=== PATIENT | male | born 1980 | race African-American/Black ===

== ENCOUNTER 2017-01-14 16:11 | Inpatient (IN) | payer OTHER ==
[2017-01-14] VITALS (7 sets, daily range): BP systolic 141–152; BP diastolic 73–95; PULSE 65–82; RESP 18; TEMP 98.4; O2SAT 95–100
[~2017-01-14] VITALS: Ht 182.9 cm; Wt 113.6 kg
[2017-01-14] MEDS ORDERED: SODIUM CHLORIDE 0.9% FLUSH 5 ML FLUSH IVF PRN (17:00)
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
[2017-01-14] MEDS ORDERED: MORPHINE SULFATE 4 MG/ML INJ IV PUSH ONE ×2 (17:30→20:45)
[2017-01-14 17:37] LABS: AUTOMATED NEUTROPHIL # 4.9 TH/MM3 (1.8-7.7); BASOPHIL % 0.2 % (0.0-2.0); EOSINOPHIL # 0.1 TH/MM3 (0-0.4); EOSINOPHIL % 1.5 % (0.0-4.0); HEMATOCRIT 43.1 % (39.0-51.0); HEMO FLAGS DIFF FINAL; LYMPH % 22.4 % (9.0-44.0); LYMPHOCYTE # 1.6 TH/MM3 (1.0-4.8); MEAN CELL VOLUME 81.5 FL (80.0-100.0); MEAN CORPUSCULAR HEMOGLOBIN 27.7 PG (27.0-34.0); MONO % 7.6 % (0.0-8.0); NEUT % 68.3 % (16.0-70.0); PLATELET COUNT 176 TH/MM3 (150-450); RED BLOOD COUNT 5.28 MIL/MM3 (4.50-5.90); RED CELL DISTRIBUTION WIDTH 13.9 % (11.6-17.2); WHITE BLOOD COUNT 7.2 TH/MM3 (4.0-11.0)
[2017-01-14 17:46] LABS: APTT (PATIENT) 28.4 SEC (24.3-30.1); PROTHROMBIN TIME - PATIENT 11.3 SEC (9.8-11.6)
[2017-01-14 17:59] LABS: BICARBONATE 27.4 MEQ/L (21.0-32.0); POTASSIUM 3.5 MEQ/L (3.5-5.1)
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
[2017-01-14] MEDS ORDERED: PROPOFOL 200 MG/20 ML AMP IV ONE (19:15)
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
--- NOTE | 2017-01-14 20:21 | RADRPT ---
EXAM DATE/TIME: 01/14/2017 19:49 [facility] COMPARISON: ANKLE RIGHT COMPLETE ([id number]), January 14, 2017, 18:42. INDICATIONS : Right Ankle Post-Reduction. MEDICAL HISTORY : None. SURGICAL HISTORY : None. ENCOUNTER: Initial ACUITY: 1 day PAIN SCORE: 8/10 LOCATION: Right Ankle. FINDINGS: Limited AP and lateral views of the right ankle were obtained and demonstrate postreduction changes. The fracture dislocation has been partially reduced with residual widening of the medial ankle mortis e approximately 1 cm. The tibia and talus are congruent. The fracture of the distal fibula has been r educed to near-anatomic alignment. There is no residual angulation. There is overlying soft tissue sw elling. CONCLUSION: Is reduction study is noted. Dominic Pierre MD on January 14, 2017 at 20:17 Board Certified Radiologist. This report was verified electronically.
[2017-01-14] MEDS ORDERED: ONDANSETRON HCL 4 MG/2 ML VIAL IV PUSH ONE (20:45)
[2017-01-14] MEDS ORDERED: TETANUS/DIPHTHERIA TOXOID ADULT 0.5 ML VIAL IM ONE (21:00)
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
[2017-01-14] MEDS ORDERED: SODIUM CHLORIDE 0.9% FLUSH 5 ML FLUSH FLUSH PRN (23:00)
[2017-01-14] MEDS ORDERED: ACETAMINOPHEN/HYDROcodone 325 MG/5 MG TAB PO PRN (23:00)
[2017-01-14] MEDS ORDERED: ACETAMINOPHEN 325 MG TAB PO PRN (23:00)
[2017-01-14] MEDS ORDERED: BISACODYL 10 MG SUPP PR PRN (23:00)
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
[2017-01-14] MEDS: SODIUM CHLOR 0.9% 1000 ML INJ 1,000 ML IV SCH (23:34)
[2017-01-14] MEDS: MORPHINE SULFATE 4 MG/ML INJ IV PRN (23:37)
[2017-01-15] VITALS (7 sets, daily range): BP systolic 102–153; BP diastolic 47–92; PULSE 58–76; RESP 16–22; TEMP 95.8–99.2; O2SAT 95–99
[2017-01-15] MEDS ORDERED: SODIUM CHLORID 0.9% 500 ML IV SCH (02:30)
[2017-01-15] MEDS ORDERED: METOPROLOL TARTRATE 25 MG TAB PO PRN (02:30)
[2017-01-15] MEDS ORDERED: LACTATED RINGER'S 1000 ML IV SCH (02:30)
[2017-01-15] MEDS ORDERED: INSULIN HUMAN REGULAR 1,000 UNITS/10 ML VIAL SQ PRN (02:30)
[2017-01-15] MEDS: ONDANSETRON HCL 4 MG/2 ML VIAL IVP PRN ×2 (02:41→09:18)
[2017-01-15] MEDS: MORPHINE SULFATE 4 MG/ML INJ IV PRN ×3 (02:42→09:17)
[2017-01-15 06:45] LABS: AUTOMATED NEUTROPHIL # 4.1 TH/MM3 (1.8-7.7); BASOPHIL % 0.2 % (0.0-2.0); EOSINOPHIL # 0.1 TH/MM3 (0-0.4); EOSINOPHIL % 1.5 % (0.0-4.0); HEMATOCRIT 40.4 % (39.0-51.0); HEMO FLAGS DIFF FINAL; LYMPHOCYTE # 1.9 TH/MM3 (1.0-4.8); MEAN CELL VOLUME 81.1 FL (80.0-100.0); MEAN CORPUSCULAR HEMOGLOBIN 27.6 PG (27.0-34.0); MONO % 11.1 % (0.0-8.0); NEUT % 60.2 % (16.0-70.0); PLATELET COUNT 161 TH/MM3 (150-450); RED BLOOD COUNT 4.98 MIL/MM3 (4.50-5.90); RED CELL DISTRIBUTION WIDTH 13.9 % (11.6-17.2); WHITE BLOOD COUNT 6.9 TH/MM3 (4.0-11.0)
[2017-01-15 07:03] LABS: ALT (GPT) 22 U/L (12-78); ANION GAP 8 MEQ/L (5-15); AST (GOT) 17 U/L (15-37); BICARBONATE 27.2 MEQ/L (21.0-32.0); BLOOD UREA NITROGEN 10 MG/DL (7-18); CHLORIDE 106 MEQ/L (98-107); GLOMERULAR FILTRATION RATE 92 ML/MIN (>89); POTASSIUM 3.7 MEQ/L (3.5-5.1); SODIUM (NA) 141 MEQ/L (136-145)
[2017-01-15 07:05] LABS: ALKALINE PHOSPHATASE 51 U/L (45-117); TOTAL BILIRUBIN ADULT 0.7 MG/DL (0.2-1.0)
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
[2017-01-15] MEDS: SODIUM CHLORIDE 0.9% FLUSH 5 ML FLUSH FLUSH SCH ×2 (09:00→20:52)
[2017-01-15] MEDS ORDERED: PROPOFOL 200 MG/20 ML AMP IV ONE (12:00)
[2017-01-15] MEDS ORDERED: NEOSTIGMINE 3 MG/3 ML SYR IV ONE (12:00)
[2017-01-15] MEDS ORDERED: NALOXONE HCL 0.4 MG/ML AMP IV ONE (12:00)
[2017-01-15] MEDS ORDERED: LACTATED RINGER'S 1000 ML INJ 1,000 ML IV ONE (12:00)
[2017-01-15] MEDS ORDERED: ONDANSETRON HCL 4 MG/2 ML VIAL IV PUSH ONE (12:00)
[2017-01-15] MEDS ORDERED: GENTAMICIN SULFATE 80 MG/2 ML VIAL ONE (12:48)
[2017-01-15] MEDS ORDERED: ceFAZolin INJ 1,000 MG VIAL ONE (12:48)
[2017-01-15] MEDS ORDERED: VANCOMYCIN HCL 1000 MG VIAL ONE (13:24)
--- NOTE | 2017-01-15 14:29 | PD.OP ---
Operative Report Preoperative Diagnosis: (1) Fracture of ankle, bimalleolar, right, closed (2) Syndesmotic disruption of right ankle Postoperative Diagnosis: (1) Fracture of ankle, bimalleolar, right, closed (2) Syndesmotic disruption of right ankle Procedure: 1) Right Ankle ORIF Bimalleolar Fracture 2) Right Ankle Repair Syndesmosis Anesthesia: General Surgeon: Golden Boothe MD Leather Lacer(s): Omra MESSINA Operation and Findings: see dictation Golden Boothe MD Jan 15, 2017 14:29
[2017-01-15] MEDS ORDERED: HYDROmorphone HCL PCA 6 MG/30 ML IV SCH (14:30)
[2017-01-15] MEDS ORDERED: diphenhydrAMINE HCL 25 MG CAP PO PRN (14:30)
[2017-01-15] MEDS ORDERED: MISCELLANEOUS PHARMACY INFORMATION XX ONE (14:30)
[2017-01-15] MEDS ORDERED: oxyCODONE/ACETAMINOPHEN 5 MG/325 MG TAB PO PRN (14:30)
[2017-01-15] MEDS ORDERED: NALOXONE HCL 0.4 MG/ML AMP IV PRN (14:30)
[2017-01-15] MEDS ORDERED: SODIUM CHLORIDE 0.9% FLUSH 5 ML FLUSH IVF PRN (14:30)
[2017-01-15] MEDS ORDERED: Post-op Orders (for Pharmacy) MISC XX ONE (14:30)
[2017-01-15] MEDS ORDERED: MISCELLANEOUS NURSING INFORMATION XX PRN (14:30)
[2017-01-15] MEDS: DEXT 5%-NACL 0.45% 1000 ML INJ 1,000 ML IV SCH (14:50)
[2017-01-15] MEDS ORDERED: *MEPERIDINE 25 MG INJ VIAL PERIprocedural Use ONLY ONE (14:50)
[2017-01-15] MEDS ORDERED: MIDAZOLAM HCL 2 MG/2 ML VIAL ONE (14:58)
[2017-01-15] MEDS ORDERED: fentaNYL CITRATE 250 MCG/5 ML AMP ONE (14:59)
[2017-01-15] MEDS ORDERED: MORPHINE SULFATE 4 MG/ML INJ ONE (14:59)
[2017-01-15] MEDS ORDERED: DO NOT ADM ANY ANTICOAGULANT DRUGS XX PRN (15:30)
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
--- NOTE | 2017-01-15 19:53 | RADRPT ---
EXAM DATE/TIME: 01/15/2017 14:09 [facility] COMPARISON: ANKLE RIGHT COMPLETE ([id number]), January 14, 2017, 18:42. INDICATIONS : Open reduction in operating room. MEDICAL HISTORY : None. SURGICAL HISTORY : None. ENCOUNTER: Subsequent ACUITY: 2 days PAIN SCORE: Non-responsive. LOCATION: Right lateral CONCLUSION: Fluoroscopic images demonstrate plate segment of plate and screws along the fibula. Syndesmotic screw along the ankle joint. Ryan Sorensen MD on January 15, 2017 at 19:51 Board Certified Radiologist. This report was verified electronically.
[2017-01-15] MEDS: ceFAZolin 2 GM PREMIX 50 ML IV SCH (20:52)
[2017-01-15] MEDS: SODIUM CHLORIDE 0.9% FLUSH 5 ML FLUSH IVF SCH (20:52)
[2017-01-15] MEDS: PCA - TOTAL MG DILAUDID DELIVERED PER SHIFT OTHER SCH (22:00)
[2017-01-16 01:15] VITALS: BP 141/66; PULSE 84; RESP 22; TEMP 100.3; O2SAT 96
[2017-01-16] MEDS: DEXT 5%-NACL 0.45% 1000 ML INJ 1,000 ML IV SCH ×2 (02:02→09:11)
[2017-01-16] MEDS: SODIUM CHLOR 0.9% 1000 ML INJ 1,000 ML IV SCH ×2 (04:55→14:55)
[2017-01-16 04:56] LABS: HEMATOCRIT 37.3 % (39.0-51.0)
[2017-01-16] MEDS: ceFAZolin 2 GM PREMIX 50 ML IV SCH ×2 (05:05→13:05)
[2017-01-16 05:08] VITALS: BP 151/92; PULSE 87; RESP 22; TEMP 99.7; O2SAT 95
[2017-01-16 05:25] LABS: BICARBONATE 29.5 MEQ/L (21.0-32.0); POTASSIUM 3.5 MEQ/L (3.5-5.1)
[2017-01-16] MEDS: PCA - TOTAL MG DILAUDID DELIVERED PER SHIFT OTHER SCH ×2 (06:00→14:00)
[2017-01-16 08:00] VITALS: BP 133/83; PULSE 83; RESP 18; TEMP 99.2; O2SAT 98
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
[2017-01-16] MEDS: SODIUM CHLORIDE 0.9% FLUSH 5 ML FLUSH FLUSH SCH (08:54)
[2017-01-16] MEDS: SODIUM CHLORIDE 0.9% FLUSH 5 ML FLUSH IVF SCH (08:54)
[2017-01-16] MEDS: oxyCODONE/ACETAMINOPHEN 5 MG/325 MG TAB PO PRN ×2 (09:19→15:36)
--- NOTE | 2017-01-16 10:21 | PD.ORT.PN ---
Subjective Subjective Remarks Patient comfortable. Pain controlled. Objective Vitals Vital Signs Date Time Temp Pulse Resp B/P Pulse Ox O2 Delivery O2 Flow Rate FiO2 01/16/17 08:00 99.2 83 18 133/83 98 01/16/17 05:08 99.7 87 22 151/92 95 01/16/17 01:15 100.3 84 22 141/66 96 01/15/17 23:49 99.2 72 22 135/89 97 01/15/17 22:00 15 01/15/17 21:10 98 Nasal Cannula 3.00 01/15/17 16:00 98.6 76 16 102/47 97 01/15/17 16:00 68 14 164/96 94 Nasal Cannula 3 01/15/17 15:50 14 01/15/17 15:45 98.5 67 14 162/95 95 Nasal Cannula 2 01/15/17 15:30 62 14 172/95 95 Nasal Cannula 2 01/15/17 15:15 62 14 164/93 94 Nasal Cannula 3 01/15/17 15:00 65 15 169/99 96 Nasal Cannula 4 01/15/17 14:50 98.3 84 15 179/97 94 Nasal Cannula 4 01/15/17 12:00 95.8 73 16 113/55 99 I/O 01/15/17 01/15/17 01/15/17 01/16/17 01/16/17 01/16/17 07:00 15:00 23:00 07:00 15:00 23:00 Intake Total 609 ml 1460 ml 645 ml 1485 ml Output Total 550 ml 10 ml 350 ml 1600 ml Balance 59 ml 1450 ml 295 ml -115 ml Intake Oral 0 ml 360 ml 780 ml IV Total 609 ml 645 ml 705 ml Other 1100 ml Output Urine Total 550 ml 350 ml 1600 ml Estimated Blood Loss 10 ml # Voids 3 1 # Bowel Movements 0 0 Result Diagram: 01/16/17 0401 01/16/17 0401 Objective Remarks Right ankle kristina wrap and splint in place calves soft negative Escobar's NVI Assessment & Plan Problem List: (1) Fracture of ankle, bimalleolar, right, closed (2) Syndesmotic disruption of right ankle Assessment and Plan POD #1 ORIF of Right Ankle and ORIF of sydesmosis Pain management - Percocet Physical therapy -non weight bearing RLE D/C planning - Home ([place], [place]) Orthopedically stable for discharge. Instructed to f/u with orthopedic surgeon for continual care. Ok to fly back home. At this time we will leave the f/u appointment open, sooner if any problems arise. Omar Syed Jan 16, 2017 10:21
[2017-01-16] MEDS ORDERED: POTASSIUM CHLORIDE 20 MEQ CONTROLLED RELEASE TAB PO ONE (11:00)
[2017-01-16] MEDS ORDERED: OXYC1TAB63 PO (11:08)
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
[2017-01-16 12:00] VITALS: BP 139/81; PULSE 78; RESP 18; TEMP 98.4; O2SAT 95
[2017-01-16] MEDS ORDERED: WALKER WHEELS/F1 MIS (12:01)
[2017-01-16 14:32] VITALS: O2SAT 96
--- NOTE | 2017-01-21 17:59 | PD ---
Data Data Orders Ct Brain W/O Iv Contrast(Rout) (01/14/17 ) Ct Cerv Spine W/O Contrast (01/14/17 ) Ankle, Complete ([id number]) (01/14/17 17:00) Tibia/Fibula (Ap/Lat) (01/14/17 17:00) Basic Metabolic Panel (Bmp) (01/14/17 17:00) Complete Blood Count With Diff (01/14/17 17:00) Prothrombin Time / Inr (Pt) (01/14/17 17:00) Act Partial Throm Time (Ptt) (01/14/17 17:00) Iv Access Insert/Monitor (01/14/17 17:00) Ecg Monitoring (01/14/17 17:00) Oximetry (01/14/17 17:00) Sodium Chloride 0.9% Flush (Ns Flush) (01/14/17 17:00) Chest, Single Ap (01/14/17 17:00) Pelvis, Ap Only (Routine) (01/14/17 ) Morphine Inj (Morphine Inj) (01/14/17 17:30) Knee, Ltd (1 Or 2vws) (01/14/17 17:00) Propofol 200 Mg/20 Ml Inj (Diprivan 200 (01/14/17 19:15) Splint Or Brace Apply/Monitor (01/14/17 19:38) Crutches (01/14/17 19:38) Ankle, Limited (Ap&Lat) (01/14/17 19:38) Morphine Inj (Morphine Inj) (01/14/17 20:45) Ondansetron Inj (Zofran Inj) (01/14/17 20:45) Tetanus/Diphtheria Tox Adult (Tetanus/Di (01/14/17 21:00) Knee, Complete (4vws) (01/14/17 21:01) Wound Care (01/14/17 21:10) Fiberglass Short Leg Splint Ad (01/14/17 ) Fiberglass Sugartong Sp Ad Sl (01/14/17 ) Ice Cuff (01/14/17 ) Admit Order (Ed Use Only) (01/14/17 ) MDM Supervised Visit with JENNIFER: Yes Narrative Course Assessment Dr. Fuller to sedate patient for reduction of fracture dislocation of the ankle. Patient was consented by Dr. Fuller. I discussed the risks benefits competitions of sedation prior to induction. Patient understands risks of apnea hypertension allergic reaction burning at the injection site. He is agreeable to sedation at this time. He has Mallampati 1 ASA 1. He is appropriate for emergency department sedation. Procedures Procedure Narrative After the risks and benefits were discussed the following procedure was performed: MODERATE SEDATION: The patient was placed on a coat examiner and pulse oximetry and end-tidal capnography weight monitoring. An ambu bag and suction was immediately available at bedside. The patient was monitored by the nurse and respiratory therapy. Oxygen saturation, heart rate and blood pressure were monitored. Procedural sedation was achieved using a total of 130 mg of propofol . Reduction was easily performed by Dr. Worley. The patient was observed until awake and alert. Procedural Sedation time in attendance was 15 minutes. Patient achieved full alertness afterwards, has suffered no apparent untoward events. Patient is left in nursing care. Please see sedation documentation for further information. Diagnosis Primary Impression: Dislocated ankle Qualified Code: S93.04XA - Dislocated ankle, right, initial encounter Additional Impression: Trimalleolar fracture of ankle, closed Qualified Code: S82.851A - Trimalleolar fracture of ankle, closed, right, initial encounter Patient Instructions: Home Safety (GEN), How to Choose and Use a Walker (GEN), Fall Prevention (DC), ORIF (DC) Scripts Walker with Front Wheels 1 Mis Mis #1 EA .XX Ref 0 Follow Physical Therapy recommendations. Prov:Marquis Ramos MD 01/16/17 Oxycodone-Acetaminophen 5-325 mg Tab1 Tab PO Q4H PRN (PAIN LESS THAN 5 ON SCALE ) #15 TAB Ref 0 Do not take this medicine if you will drive a car or use a machine, only use it when resting at home Prov:Marquis Ramos MD 01/16/17 Jairo Mancini MD Jan 21, 2017 17:59
== END 2017-01-16 16:37 | disposition home or self-care (01) | DRG 494 ==
LOC: NEPA 16:11 → NEDA 22:46 → N06B 01-15 00:07
PROVIDERS: ADMIT Internal Medicine; ATTEND Internal Medicine
PROC: 0SSFXZZ Reposition Right Ankle Joint, External Approach (ICD-10-PCS; 2017-01-14)
PROC: 0QSJ04Z Reposition Right Fibula with Internal Fixation Device, Open Approach (ICD-10-PCS; 2017-01-15)
PROC: 0SSF04Z Reposition Right Ankle Joint with Internal Fixation Device, Open Approach (ICD-10-PCS; 2017-01-15)
PROC: 0QSG04Z Reposition Right Tibia with Internal Fixation Device, Open Approach (ICD-10-PCS; principal; 2017-01-15 12:43)
DX: S82.841A Displaced bimalleolar fracture of right lower leg, initial encounter for closed fracture (principal); S93.04XA Dislocation of right ankle joint, initial encounter; I10 Essential (primary) hypertension; E86.0 Dehydration; V22.4XXA Motorcycle driver injured in collision with two- or three-wheeled motor vehicle in traffic accident, initial encounter; Y92.488 Other paved roadways as the place of occurrence of the external cause; Y93.89 Activity, other specified; Y99.9 Unspecified external cause status
CPT/HCPCS: 27840; 70450; 71010; 72125; 72170; 73560; 73564; 73590; 73600; 73610; 76000; 80048; 80053; 85014; 85018; 85025; 85610; 85730; 90471; 90714; 94150; 96374; 96375; 96376; 99152; C1713; J0690; J1170; J1580; J2175; J2250; J2270; J2310; J2405; J2710; J3010; J3370; J7030; J7120